=== PATIENT | male | born 1960 | race Caucasian/White ===

== ENCOUNTER 2024-02-20 14:41 | Emergency (ER) | payer MEDICARE ==
[~2024-02-20] VITALS: Ht 177.8 cm; Wt 129.3 kg
[2024-02-20 15:23] LABS: BASO % 0.2 % (0.0-1.0); EOS % 0.3 % (1.0-4.0); MEAN CELL VOLUME 88.9 fl (80.0-94.0); MEAN CORPUSCULAR HGB 28.6 pg (27.0-31.0); MEAN CORPUSCULAR HGB CONC 32.2 g/dl (33.0-37.0); MEAN PLATELET VOLUME 10.9 fl (9.6-12.3); MONO # 0.1 10*3/uL (0.1-1.0); MONO % 1.4 % (3.0-9.0); NEUT # 7.6 10*3/uL (2.3-7.9); NEUT % 89.1 % (47.0-73.0); PLATELET COUNT AUTOMATED 172 10*3/uL (130-400); RED BLOOD COUNT 4.61 10*6/uL (4.50-5.90); RED CELL DISTRI WIDTH 13.2 % (0-14.5); WHITE BLOOD COUNT 8.6 10*3/uL (4.8-10.8)
[2024-02-20] MEDS ORDERED: IOHEXOL 300 MG/ML 100 ML VIAL IV ONE (15:25)
[2024-02-20 15:48] LABS: TOTAL PROTEIN 8.2 gm/dL (6.0-8.0)
[2024-02-20] MEDS ORDERED: MORPHINE Sulfate 2 MG/ML SYR IV ONE (17:35)
[2024-02-20] MEDS ORDERED: methylPREDNISolone sod succ 125 MG VIAL IV ONE (17:35)
[2024-02-20] MEDS ORDERED: Ondansetron Hydrochloride 4 MG/2 ML VIAL IV ONE (18:50)
[2024-02-21] MEDS ORDERED: MORPHINE Sulfate 2 MG/ML SYR IV ONE ×2 (01:45→08:15)
[2024-02-21] MEDS ORDERED: Ondansetron Hydrochloride 4 MG/2 ML VIAL IV ONE ×2 (01:45→08:45)
[2024-02-21] MEDS ORDERED: TRULICITY1.5 MG/0.5 SC (07:46)
[2024-02-21] MEDS ORDERED: NEURONTIN300 MG PO (07:47)
[2024-02-21] MEDS ORDERED: FENOFIBRATE160 MG PO (07:47)
[2024-02-21] MEDS ORDERED: HYDROCHLOROTHIA50 M1 PO (07:47)
[2024-02-21] MEDS ORDERED: METFORMIN HYD1000 MG PO (07:48)
[2024-02-21] MEDS ORDERED: LISINOPRIL30 MG PO (07:48)
[2024-02-21] MEDS ORDERED: ESOMEPRAZOLE MA40 M1 PO (07:48)
[2024-02-21] MEDS ORDERED: ASPIRIN81 M1 PO (07:49)
[2024-02-21] MEDS ORDERED: GLIPIZIDE5 MG PO (07:49)
[2024-02-21] MEDS ORDERED: FENOFIBRATE 145 MG TAB PO SCH (10:00)
[2024-02-21] MEDS ORDERED: HYDROCHLOROTHIAZIDE 25 MG TAB PO SCH (10:00)
[2024-02-21] MEDS ORDERED: SODIUM CHLORIDE 0.9% 1,000 ML IV ONE (11:30)
[2024-02-21] MEDS ORDERED: DEXTROSE 10 % IN WATER 250 ML IV PRN (11:50)
[2024-02-21] MEDS ORDERED: GABAPENTIN 300 MG CAP PO SCH ×2 (14:00→22:00)
[2024-02-21] MEDS ORDERED: GABAPENTIN 600 MG TAB PO SCH ×2 (14:00)
[2024-02-21] MEDS ORDERED: MORPHINE Sulfate 2 MG/ML SYR IV PRN (15:40)
[2024-02-21] MEDS ORDERED: Ondansetron Hydrochloride 4 MG/2 ML VIAL IV PRN (15:40)
[2024-02-21] MEDS ORDERED: INSULIN LISPRO 1 UNIT/0.01 ML SQ SCH (16:30)
[2024-02-21] MEDS ORDERED: LISINOPRIL 10 MG TAB PO SCH (22:00)
[2024-02-22] MEDS ORDERED: FENOFIBRATE 145 MG TAB PO SCH (10:00)
[2024-02-22] MEDS ORDERED: ASPIRIN ENTERIC COATED 81 MG TAB PO SCH (10:00)
[2024-02-22] MEDS ORDERED: HYDROCHLOROTHIAZIDE 25 MG TAB PO SCH (10:00)
[2024-02-22] MEDS ORDERED: Enoxaparin Sodium 40 MG/0.4 ML SYR SC SCH (10:00)
== END 2024-02-21 22:38 | disposition short-term general hospital (02) ==
LOC: ED 14:41
PROVIDERS: Internal Medicine
DX: M48.07 Spinal stenosis, lumbosacral region (principal); D64.9 Anemia, unspecified; E11.65 Type 2 diabetes mellitus with hyperglycemia; N17.0 Acute kidney failure with tubular necrosis; E83.52 Hypercalcemia; E11.40 Type 2 diabetes mellitus with diabetic neuropathy, unspecified; I10 Essential (primary) hypertension; E78.5 Hyperlipidemia, unspecified; J45.909 Unspecified asthma, uncomplicated; Z98.890 Other specified postprocedural states; Z91.048 Other nonmedicinal substance allergy status; Z88.1 Allergy status to other antibiotic agents; Z96.653 Presence of artificial knee joint, bilateral; Z90.89 Acquired absence of other organs; Z79.82 Long term (current) use of aspirin; Z79.84 Long term (current) use of oral hypoglycemic drugs